=== PATIENT | male | born 1990 | race Two or more races ===

== ENCOUNTER 2019-03-01 15:46 | Emergency (ER) | payer SELFPAY ==
[2019-03-01] MEDS ORDERED: LIDOCAINE 1% INJ-PF (10 MG/ML) 30 ML SDV INJ ONE (16:16)
--- NOTE | 2019-03-01 16:26 | ER Document Report ---
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 Reports he was cutting some chicken and cut his thumb. Laceration flap noted to the left thumb distal ventral. No nailbed injury. He reports his tetanus was up-to-date. Associated Symptoms: None Exacerbated by: Denies Relieved by: Denies Similar symptoms previously: No Recently seen / treated by doctor: No Past Medical History - General Information source: Patient - Social History Smoking Status: Current Every Day Smoker Cigarette use (# per day): Yes Frequency of alcohol use: Occasional Drug Abuse: Marijuana Family History: None Patient has suicidal ideation: No Patient has homicidal ideation: No - Medical History Medical History: Negative Surgical Hx: Negative Vertical Provider Document - CONSTITUTIONAL Agree With Documented VS: Yes Exam Limitations: No Limitations General Appearance: WD/WN, No Apparent Distress - HEENT HEENT: Atraumatic, Normocephalic - NECK Neck: Supple - RESPIRATORY Respiratory: No Respiratory Distress - CARDIOVASCULAR Cardiovascular: Regular Rate - MUSCULOSKELETAL/EXTREMETIES Musculoskeletal/Extremeties: MAEW, FROM, Non-Tender - Laceration to the distal tip ventrally left thumb. Patient can flex and extend his thumb no nailbed injury, - NEURO Level of Consciousness: Awake, Alert, Appropriate Motor/Sensory: No Motor Deficit - DERM Integumentary: Warm, Dry, Laceration - circular flap to distal left thumb, no active bleeding Course - Re-evaluation Re-evalutation: 03/01/19 17:26 28-year-old presented to the emergency department with a laceration flap to the distal tip of his left thumb ventrally. Patient reports he cut himself cutting chicken. He reports his tetanus was up-to-date. His hand was first soaked in normal saline and Shur-Clens for at least 30 minutes. The laceration flap was sutured with 4-0 nylon. Patient was instructed on signs and symptoms of infection to the palm. He verbalized understanding to all instructions. Finger splint was placed to protect the site. He was instructed to return here in 14 days for removal of sutures. Patient reports he is from [place] he is a health teacher and he may not be around. Dictation of this chart was performed using voice recognition software; t herefore, there may be some unintended grammatical errors. - Vital Signs Vital signs: Temp Pulse Resp BP Pulse Ox 98.5 F 87 16 141/76 H 98 03/01/19 15:52 03/01/19 15:52 03/01/19 15:52 03/01/19 15:52 03/01/19 15:52 Procedures - Immobilization Left Thumb Pre-Proc Neuro Vasc Exam: Normal Immobilizer type: Finger splint (Static) Performed by: PCT Post-Proc Neuro Vasc Exam: Unchanged from pre-exam - Laceration/Wound Repair Left Thumb Wound length (cm): 1 - 1.5 cm flap to tip of thumb Wound's Depth, Shape: Superficial, Flap Laceration pre-procedure: Shyesenia-Clerosaura applied Anesthetic type: 1% Lidocaine Volume Anesthetic (mLs): 1 Wound explored: Clean Irrigated w/ Saline (mLs): 100 - soaked in ns/shur clens Wound Repaired With: Sutures Suture Size/Type: 4:0, Nylon Number of Sutures: 5 Layer Closure?: No Hands back picture: 1 - thumb flap laceration, no nailbed injury Discharge - Discharge Clinical Impression: Laceration of left thumb Qualifiers: Encounter type: initial encounter Damage to nail status: without damage Foreign body presence: without foreign body Qualified Code(s): S61.012A - Laceration without foreign body of left thumb without damage to nail, initial encounter Condition: Stable Disposition: HOME, SELF-CARE Instructions: Laceration Care ([facility]), Soap Cleansing ([facility]) Additional Instructions: *You have been treated for laceration to your thumb *Take ibuprofen or Tylenol as indicated for pain *Monitor the site for signs of infection such as increasing pain, redness, swelling, warmth *Keep your hand clean, maintain splint to protect your thumb *Return here in 14 days for removal of sutures *Return to ED here earlier for signs of infection, worsening condition, changes, needs Forms: Elevated Blood Pressure
[2019-03-01 17:14] VITALS: BP 157/78
== END 2019-03-01 17:12 | disposition home or self-care (01) ==
LOC: ER 15:46
DX: S61.012A Laceration without foreign body of left thumb without damage to nail, initial encounter (principal); W45.8XXA Other foreign body or object entering through skin, initial encounter; Y93.G9 Activity, other involving cooking and grilling; F17.210 Nicotine dependence, cigarettes, uncomplicated; F12.10 Cannabis abuse, uncomplicated
CPT/HCPCS: 12001; J3490